=== PATIENT | female | born 1965 | race Two or more races ===

== ENCOUNTER 2019-10-09 15:39 | Emergency (ER) | payer MEDICAID ==
[~2019-10-09] VITALS: Ht 160 cm; Wt 74.8 kg
[2019-10-09 16:00] VITALS: BP 143/84
[2019-10-09] MEDS ORDERED: Ketorolac 60mg Inj IM ONE (16:15)
--- NOTE | 2019-10-09 16:51 | Emergency Room Report ---
History of Present Illness General Chief Complaint: Back Pain-No Injury Source: Patient Present Illness HPI Patient presents with complaints of right upper back mid back area pain reports that it starts more medially and radiates outward Ongoing for the past several days Patient reports that she has had this problem for over 20 years She has been followed by her primary physician She reports that she usually goes to [facility] However the weight today was too long and the patient presents here Patient reports that ' all I need is a shot' Patient also reports that she has had this pain multiple times And has had multiple imaging studies and blood work And they think there is a nerve problem Patient does not want any blood work or evaluation further Denies any focal weakness denies any chest pain or shortness of breath Allergies: Coded Allergies: SULFA (SULFONAMIDE ANTIBIOTICS) (Verified Allergy, Unknown, 10/09/19) Patient History Past Medical History: see triage record Last Menstrual Period: na Reviewed Nursing Documentation: PMH: Agreed; PSxH: Agreed Review of Systems All Other Systems: negative except mentioned in HPI Physical Exam Vital Signs Date Time Temp Pulse Resp B/P (MAP) Pulse Ox O2 Delivery O2 Flow Rate FiO2 10/09/19 15:57 97.9 99 18 143/84 (103) 97 Room Air Sp02 EP Interpretation: reviewed, normal General Appearance: well appearing, no apparent distress Head: normocephalic, atraumatic Eyes: bilateral eye PERRL, bilateral eye EOMI ENT: hearing grossly normal, EOM grossly intact Neck: supple Respiratory: lungs clear, no respiratory distress, no retraction Cardiovascular #1: regular rate, rhythm Gastrointestinal: non tender, soft Genitourinary: no CVA tenderness Musculoskeletal: other - Right parathoracic region T5-T6 region no midline step -off no dermatomal lesions Neurologic: alert, oriented x3 Psychiatric: normal inspection Skin: no rash Lymphatic: no adenopathy Medical Decision Making Diagnostic Impression: Primary Impression: Back pain ER Course Patient's presentation and history has multiple differentials including but not limited to kidney stones, cardiac, pulmonary pathology Patient here reports that she has had extensive work-up and does not want to have any further evaluation or examination For this area Patient reports that she ' gets a shot' and [facility] and would like to have the same treatment I did discuss with her that I do not have any of her previous medical history and pain in that area can have multiple differentials, as discussed above also including vascular pathology and other emergencies After the initial injection of Toradol patient reports that she did not feel significant improvement At this time she reports that in the past she has had to receive 2 to 3 injections at [facility] as well I discussed with the patient and her daughter has also presented, that I can perform further testing and evaluation to find the source of this discomfort patient again reiterates that she feels this is a nerve issue and does not want to have further testing Patient will continue with close outpatient follow-up Last Vital Signs Date Time Temp Pulse Resp B/P (MAP) Pulse Ox O2 Delivery O2 Flow Rate FiO2 10/09/19 15:57 97.9 99 18 143/84 (103) 97 Room Air Status: improved Disposition: HOME, SELF-CARE Condition: Improved Referrals: PMD Patient Instructions: Back Pain, Adult Additional Instructions: Please note that at this time you have reported that this pain is normal for you. Your report multiple work-ups with CAT scan imaging, blood work, and on today's visit requested that no further work-up be obtained. This can lead to missed diagnoses and potential life-threatening pathology you have been provided with the discharge instructions notified to follow up with primary doctor in the next 2-3 days otherwise return to the er with any worsening symptoms. Please note that this report is being documented using [employer] technology. This can lead to erroneous entry secondary to incorrect interpretation by the dictating instrument. Violet Burt DO Oct 09, 2019 16:51
[2019-10-09 17:04] VITALS: BP 138/86
== END 2019-10-09 17:04 | disposition home or self-care (01) ==
LOC: EMR 16:20
DX: M54.6 Pain in thoracic spine (principal); Z88.2 Allergy status to sulfonamides
CPT/HCPCS: 96372; Z7502; 99283

== ENCOUNTER → 2020-12-16 | Emergency (ER) | payer MEDICAID ==
[~2020-12-16] VITALS: Ht 160 cm; Wt 74.8 kg
[2020-12-16 12:49] VITALS: BP 111/72
--- NOTE | 2020-12-16 15:50 | NUR ---
ED Nurse Note: Patient is not found in the waiting room and hospital vicinity at this time. Pt has left without being seen. Mohan is aware.
--- NOTE | 2020-12-16 16:14 | Emergency Room Report ---
History of Present Illness General Chief Complaint: Pain Source: Patient Present Illness HPI This patient left prior to evaluation by medical provider. 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 Mitchell is my supervising Physician whom patient management has been discussed with. Diagnostic Impression: Primary Impression: Patient left without being seen ER Course This patient left prior to evaluation by medical provider. Last Vital Signs Date Time Temp Pulse Resp B/P (MAP) Pulse Ox O2 Delivery O2 Flow Rate FiO2 12/16/20 12:49 97.9 106 20 111/72 (85) 94 Room Air Disposition: LEFT W/OUT BEING SEEN Condition: Unknown Kayli Whiteside Dec 16, 2020 16:14
== END | disposition left against medical advice (07) ==
LOC: EMR 15:34
DX: Z53.21 Procedure and treatment not carried out due to patient leaving prior to being seen by health care provider (principal)